=== PATIENT | female | born 1970 | race African-American/Black ===

== ENCOUNTER 2016-12-13 20:06 | Observation (INO) | payer OTHER ==
[~2016-12-13] VITALS: Ht 177.8 cm; Wt 73.9 kg
[~2016-12-13 20:06] MED LIST: PROBCAP4
[2016-12-13] MEDS ORDERED: NALOXONE HCL 0.4 MG/ML AMP IV PRN (20:45)
[2016-12-13] MEDS ORDERED: SODIUM CHLORIDE 0.9% FLUSH 10 ML FLUSH IV FLUSH PRN (20:45)
[2016-12-13 22:05] VITALS: BP 145/94; PULSE 90; RESP 18; TEMP 96.9; O2SAT 100
[2016-12-13] MEDS: SODIUM CHLORIDE 0.9% FLUSH 10 ML FLUSH IV FLUSH SCH (22:15)
[2016-12-14] VITALS (8 sets, daily range): BP systolic 105–136; BP diastolic 74–92; PULSE 82–116; RESP 14–20; TEMP 96.5–98.3; O2SAT 97–100
[2016-12-14 07:10] LABS: AUTOMATED NEUTROPHIL # 4.2 TH/MM3 (1.8-7.7); BASOPHIL % 0.7 % (0.0-2.0); EOSINOPHIL % 0.7 % (0.0-4.0); HEMATOCRIT 38.6 % (35.0-46.0); HEMO FLAGS DIFF FINAL; LYMPH % 31.3 % (9.0-44.0); LYMPHOCYTE # 2.1 TH/MM3 (1.0-4.8); MEAN CELL VOLUME 77.6 FL (80.0-100.0); MEAN CORPUSCULAR HEMOGLOBIN 25.3 PG (27.0-34.0); MEAN CORPUSCULAR HGB CONC 32.5 % (32.0-36.0); MONO % 7.4 % (0.0-8.0); NEUT % 59.9 % (16.0-70.0); PLATELET COUNT 215 TH/MM3 (150-450); RED BLOOD COUNT 4.98 MIL/MM3 (4.00-5.30); WHITE BLOOD COUNT 6.8 TH/MM3 (4.0-11.0)
[2016-12-14 07:38] LABS: CREATINE KINASE 76 U/L (26-192)
[2016-12-14 07:42] LABS: CHLORIDE 105 MEQ/L (98-107); POTASSIUM 3.6 MEQ/L (3.5-5.1); SODIUM (NA) 142 MEQ/L (136-145)
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
[2016-12-14 07:45] LABS: ANION GAP 9 MEQ/L (5-15); BICARBONATE 28.3 MEQ/L (21.0-32.0); BLOOD UREA NITROGEN 9 MG/DL (7-18)
[2016-12-14 07:48] LABS: GLOMERULAR FILTRATION RATE 91 ML/MIN (>89)
[2016-12-14] MEDS: SODIUM CHLORIDE 0.9% FLUSH 10 ML FLUSH IV FLUSH SCH ×2 (08:51→21:31)
[2016-12-14 10:37] LABS: TOTAL BILIRUBIN ADULT 0.5 MG/DL (0.2-1.0)
[2016-12-14 10:38] LABS: ALKALINE PHOSPHATASE 49 U/L (45-117); ALT (GPT) 18 U/L (10-53); AST (GOT) 13 U/L (15-37); INDIRECT BILIRUBIN 0.4 MG/DL (0.0-0.8)
[2016-12-14 13:54] LABS: FERRITIN 19 NG/ML (8-252)
[2016-12-14] MEDS: NITROGLYCERIN 0.4 MG SL 25 TABS/BTL SL PRN ×3 (14:50→22:47)
[2016-12-14] MEDS: ACETAMINOPHEN 325 MG TAB PO PRN ×2 (17:25→21:35)
[2016-12-14 22:15] LABS: CHLAMYDIA PCR NOT DETECTED (NOT DETECT); NEISSERIA PCR NOT DETECTED (NOT DETECT)
[2016-12-15 01:07] VITALS: BP_SYST 105; BP_SYST 118; BP_SYST 97; BP_DIAS 71; BP_DIAS 76; BP_DIAS 78; PULSE 90; RESP 16; TEMP 97.7; O2SAT 94
[2016-12-15 05:11] VITALS: BP_SYST 105; BP_SYST 114; BP_SYST 117; BP_DIAS 74; BP_DIAS 81; BP_DIAS 83; PULSE 81; RESP 16; TEMP 96.5; O2SAT 100
[2016-12-15 08:00] VITALS: BP 112/77; PULSE 82; RESP 18; TEMP 97; O2SAT 97
--- NOTE | 2016-12-15 10:20 | HHI.PR ---
Subjective Remarks Follow-up chest pain/seizure-like activity 12/15/16-patient seen and examined, she was observed having a seizure-like activity however patient was able to follow command during that episode while her was present during the entire encounter. Overnight, patient was treated with nitroglycerin for chest pain. Vitals stable. EEG pending and 2-D echo completed this morning Objective Vitals Vital Signs Date Time Temp Pulse Resp B/P Pulse Ox O2 Delivery O2 Flow Rate FiO2 12/15/16 08:00 97.0 82 18 112/77 97 12/15/16 05:11 96.5 81 16 114/74 100 105/81 117/83 12/15/16 01:07 97.7 90 16 97/71 94 105/76 118/78 12/14/16 20:52 98.1 91 14 111/74 100 12/14/16 16:00 97.6 93 20 105/75 99 12/14/16 14:57 18 12/14/16 11:56 116 136/92 99 12/14/16 11:52 94 114/86 100 12/14/16 11:50 98.3 93 20 116/81 97 12/14/16 11:00 98.1 103 20 129/83 99 I/O 12/14/16 12/14/16 12/14/16 12/15/16 12/15/16 12/15/16 07:00 15:00 23:00 07:00 15:00 23:00 Intake Total 240 ml 902 ml Balance 240 ml 902 ml Intake Oral 240 ml 900 ml IV Total 2 ml # Voids 3 3 1 1 # Bowel Movements 0 Result Diagram: 12/14/16 0450 12/14/16 0450 Objective Remarks GENERAL: patient was observed having a seizure like activity SKIN: Warm and dry. HEAD: Normocephalic. EYES: No scleral icterus. No injection or drainage. NECK: Supple, trachea midline. No JVD or lymphadenopathy. CARDIOVASCULAR: Regular rate and rhythm without murmurs, gallops, or rubs. RESPIRATORY: Breath sounds equal bilaterally. No accessory muscle use. GASTROINTESTINAL: Abdomen soft, non-tender, nondistended. MUSCULOSKELETAL: No cyanosis, or edema. BACK: Nontender without obvious deformity. No CVA tenderness. NEURO: CN II-XII intact A/P Problem List: (1) Chest pain ICD Code: R07.9 Status: Acute Plan: Patient without any cardiac risk factors ACS ruled out per protocol with serial cardiac enzyme and EKGs Patient with somatization Pulmonary angiogram, chest x-ray noted and review without any cardiopulmonary disease including PE 2-D echo pending, lipid profile normal No evidence of anemia (2) Seizure ICD Code: R56.9 Status: Acute Plan: She was observed this morning with what appears to be a pseudoseizure as patient was following commands during that episode of seizure-like EEG pending (3) Dyspnea ICD Code: R06.00 Status: Acute Plan: Pulmonary angiogram did not indicate any acute abnormality, no PE Chest x-ray did not indicate any etiology for her symptoms Patient is not hypoxic she has documented 100% O2 saturations on room air 2-D echo pending Normal vitamin B-12 and folate level (4) Possible exposure to STD ICD Code: Z20.2 Status: Acute Plan: GC/chlamydia cultures negative pending HIV, RPR and hepatitis panel Problem Qualifiers (1) Chest pain: Qualified Code: R07.1 - Chest pain on breathing (2) Dyspnea: Qualified Code: R06.00 - Dyspnea, unspecified type Greg Moss MD Dec 15, 2016 10:20
[2016-12-15] MEDS ORDERED: TEMAZEPAM 15 MG CAP PO PRN (10:30)
[2016-12-15] MEDS ORDERED: DOCUSATE SODIUM 50 MG/SENNA 8.6 MG TAB PO PRN (10:30)
[2016-12-15] MEDS ORDERED: NITROGLYCERIN 0.4 MG SL 25 TABS/BTL SL PRN (10:30)
[2016-12-15] MEDS ORDERED: RESP: ALBUTEROL 2.5 MG/IPRATROPIUM 0.5 MG NEB (PRN) NEB (10:30)
[2016-12-15] MEDS ORDERED: ONDANSETRON HCL 4 MG/2 ML VIAL IV PRN (10:30)
--- NOTE | 2016-12-15 11:27 | MG ---
cc: CHARIS BROOKS MD Lab No: [id number] Date: 12/14/2016 Age: 46 Sex: F Race: DATE OF : 1970 46-year-old history of spells. 8-10 Hz alpha rhythm, well-formed 20-40 microvolts low amplitude in the frontal channels good anterior-posterior gradient. Slight increased beta frequencies in the frontal channels. Attenuation generalized slowing transition from drowsy of stage I sleep stage II around epoch 98. Good driving with photic stimulation. Single EKG showing sinus rhythm. INTERPRETATION Normal awake sleep EEG. Clinical correlation Cahris Brooks MD MG/ /10:24 AM /11:23 AM
--- NOTE | 2016-12-15 13:23 | HHI.PR ---
Addendum to Inpatient Note Addendum Reason: Additional Documentation Additional Information Patient signed AMA Discharge patient to home Regular Diet as tolerated Ad Josselyn activity Rx written:none Follow-up with primary care physician in 1 week Greg Moss MD Dec 15, 2016 13:23
--- NOTE | 2016-12-15 15:00 | ECHRPT ---
Indication: Shortness of breath CONCLUSIONS Normal left ventricular size. Wall thickness is normal. The left ventricular systolic function is normal EF 60-65 No regional wall motion abnormalities are present. [id number] mitral valve regurgitation. No aortic valve regurgitation. There is trace tricuspid valve regurgitation. BP: / HR: Rhythm: Sinus MEASUREMENTS (Male / Female) Normal Values Technical Quality:Good 2D ECHO LV Diastolic Diameter PLAX 3.6 cm 4.2 - 5.9 / 3.9 - 5.3 cm LV Systolic Diameter PLAX 2.5 cm IVS Diastolic Thickness 1.0 cm 0.6 - 1.0 / 0.6 - 0.9 cm LVPW Diastolic Thickness 1.0 cm 0.6 - 1.0 / 0.6 - 0.9 cm LV Relative Wall Thickness 0.5 RV Internal Dim ED PLAX 2.5 cm LV Ejection Fraction MOD 4C 67.1 % LV Ejection Fraction 4C AL 68.8 % M-MODE Aortic Root Diameter MM 2.7 cm LA Systolic Diameter MM 2.4 cm LA Ao Ratio MM 0.9 AV Cusp Separation MM 1.9 cm DOPPLER Mitral E Point Velocity 79.0 cm/s Mitral A Point Velocity 68.1 cm/s Mitral E to A Ratio 1.2 LV E' Lateral Velocity 9.6 cm/s Mitral E to LV E' Lateral Ratio 8.3 LV E' Septal Velocity 11.2 cm/s Mitral E to LV E' Septal Ratio 7.1 FINDINGS LEFT VENTRICLE Normal left ventricular size. Wall thickness is normal. The left ventricular systolic function is hyperdynamic with an estimated ejection fraction in the ra nge of 65- 70%. No regional wall motion abnormalities are present. RIGHT VENTRICLE Normal right ventricular size and systolic function. LEFT ATRIUM The left atrial size is normal. RIGHT ATRIUM The right atrial size is normal. ATRIAL SEPTUM Normal atrial septal thickness without atrial level shunting by limited color doppler interrogation. AORTA The aortic root and proximal ascending aorta are normal in size on limited imaging. MITRAL VALVE Structurally normal mitral valve. [id number] mitral valve regurgitation. AORTIC VALVE Trileaflet aortic valve. No aortic valve regurgitation. TRICUSPID VALVE Structurally normal tricuspid valve. There is trace tricuspid valve regurgitation. PULMONARY VALVE The pulmonary valve is not well visualized. VESSELS The inferior vena cava is normal in size. PERICARDIUM No pericardial effusion. Zachary Aguillon MD (Electronically Signed) Final Date:15 December 2016 14:59
[2016-12-17 14:45] LABS: RAPID PLASMA REAGIN SCREEN NON-REACTIVE (NON-REACTVE)
== END 2016-12-15 11:59 | disposition left against medical advice (07) ==
LOC: PHEDDLT 20:06 → PH3B 22:07
PROVIDERS: ADMIT Hospitalist; ATTEND Hospitalist
DX: R07.89 Other chest pain (principal); R06.00 Dyspnea, unspecified; R56.9 Unspecified convulsions; Z20.2 Contact with and (suspected) exposure to infections with a predominantly sexual mode of transmission
CPT/HCPCS: 36600; 70450; 71010; 71275; 74177; 80048; 80074; 80076; 80307; 81001; 82550; 82607; 82728; 82746; 82805; 83735; 83880; 84443; 84484; 84702; 85025; 85379; 85610; 85652; 85730; 86592; 86703; 87491; 87591; 93005; 93306; 95819; 97162; G0378; G8987; G8988; J2060; Q9967; 99281